=== PATIENT | female | born 1960 | race Caucasian/White ===

== ENCOUNTER 2017-02-16 07:50 | Emergency (ER) | payer MEDICARE, OTHER ==
[2017-02-16 08:23] LABS: BASOPHIL 0.4 % (0-2); EOSINOPHIL 3.8 % (0-5); HCT 40.7 % (37.0-47.0); HGB 13.6 g/dl (12.5-16.0); LYMPHOCYTE 22.5 % (15-48); MCH 31.9 pg (25.0-31.0); MCHC 33.4 g/dL (32.0-36.0); MCV 95.5 fL (78.0-100.0); MONOCYTE 6.8 % (0-12); NEUTROPHIL 66.5 % (41-80); PLT 265 K/uL (150-400); RBC 4.26 M/uL (4.20-5.40); RDW 13.4 % (11.5-14.0); WBC 8.1 K/uL (4.0-10.5)
[2017-02-16 08:55] LABS: ALBUMIN 4.2 g/dL (3.5-5.0); BILIRUBIN - TOTAL 0.2 mg/dL (0.1-1.0); CREATININE 0.9 mg/dL (0.5-1.0); GLOBULIN (CALCULATION) 3.1 g/dL (2.2-4.2); POTASSIUM 4.8 mmol/L (3.5-5.1); TOTAL PROTEIN 7.3 g/dL (6.4-8.3)
== END 2017-02-16 09:39 | disposition home or self-care (01) ==
LOC: FER 07:50
PROVIDERS: Internal Medicine
DX: J44.9 Chronic obstructive pulmonary disease, unspecified (principal); S29.012A Strain of muscle and tendon of back wall of thorax, initial encounter; J45.909 Unspecified asthma, uncomplicated; E78.5 Hyperlipidemia, unspecified; K21.9 Gastro-esophageal reflux disease without esophagitis; F41.9 Anxiety disorder, unspecified; F17.200 Nicotine dependence, unspecified, uncomplicated; Z79.899 Other long term (current) drug therapy; Z98.61 Coronary angioplasty status
CPT/HCPCS: 36415; 71010; 80053; 83690; 84484; 85025; 93005; 94640; J1885; J2405; J2930

== ENCOUNTER 2020-12-25 17:46 | Inpatient (IN) | payer MEDICARE, OTHER ==
[~2020-12-25 17:46] MED LIST: ASPIRIN81 MG PO; ATARAX25 MG PO; ATORVASTATIN CA80 MG PO; AZITHROMYCIN250 MG PO; BASAGLAR K100 UNIT/1 SC; BENTYL10 MG PO; BUMETANIDE2 MG PO; CARAFATE1 GM PO; DIFLUCAN150 MG PO; DIMENHYDRINATE50 MG PO; DULERA 200 MCG8.8 GM INH; DUONEB 2.5-0.5M1 AMP INH; DUONEB 2.5-0.5M1 AMP NEB; FENOFIBRATE160 MG PO; FLUCONAZOLE150 MG PO; GABAPENTIN300 MG PO; HUMALOG100 UNIT/3 SC; HYDROCODON-ACE1 EAC6 PO; ISOSORBIDE MONO60 MG PO; K-DUR20 MEQ PO; LISINOPRIL 2.52.5 MG PO; LOPRESSOR25 MG PO; MACROBID100 MG PO; MEDROL 4MG DOSEP4 MG PO; MELATONIN5 MG PO; NEURONTIN300 MG PO; NIACIN ER500 MG PO; NOVOLOG VI100 UNIT/1 SC; NYSTATIN15 GM TOP; OXYCODONE-ACET1 EAC1 PO; PANTOPRAZOLE SO40 MG PO; PERCOCET 5-3251 EACH PO; PLAVIX75 MG PO; PREDNISONE 20MG20 MG PO; PREDNISONE20 MG PO; PREDNISONE5 MG PO; PRILOSEC20 MG PO; PROTONIX 40MG T40 MG PO; TESSALON PERLE100 MG PO; TOPAMAX25 MG PO; TOPIRAMATE25 MG PO; TOPROL XL 25MG25 MG PO; ZANTAC150 MG PO; ZESTRIL2.5 MG PO; ZOFRAN4 MG PO; ZPAK PO
[2020-12-25 19:08] LABS: BILIRUBIN - TOTAL 0.5 mg/dL (0.2-1.0); BUN/CREAT RATIO (CALC) 17.4 RATIO; CREATININE 1.9 mg/dL (0.51-0.95); GLOBULIN (CALCULATION) 4.1 g/dL; POTASSIUM 4.5 mmol/L (3.5-5.1); TOTAL PROTEIN 8.1 g/dL (6.4-8.2)
[2020-12-25 19:12] LABS: BASOPHIL 0.4 % (0-2); EOSINOPHIL 0.6 % (0-5); HCT 44.6 % (37.0-47.0); HGB 14.6 g/dl (12.5-16.0); LACTIC ACID 1.5 mmol/L (0.4-1.9); LYMPHOCYTE 11.7 % (15-48); MCH 31.8 pg (25.0-31.0); MCHC 32.7 g/dL (32.0-36.0); MCV 97.2 fL (78.0-100.0); MONOCYTE 6.7 % (0-12); MPV 9.8 fL (6.0-9.5); NEUTROPHIL 79.8 % (41-80); NRBC 0; PLT 350 K/uL (150-400); RBC 4.59 M/uL (4.20-5.40); RDW 12.7 % (11.5-14.0); WBC 21.1 K/uL (4.0-10.5)
[2020-12-25 19:15] LABS: INR 1.11 (0.9-1.2); PROTHROMBIN TIME 13.6 SECONDS (11.4-13.6); PTT 24.4 SECONDS (22.2-34.7)
[2020-12-25 19:31] LABS: CKMB 1.5 ng/mL (0.0-3.6); PRO-BNP 116 pg/mL (<125)
[2020-12-25 21:31] LABS: CORONAVIRUS 2019 SARS-COV-2 NEGATIVE (NEGATIVE); INFLUENZA A NAA NEGATIVE (NEGATIVE)
[2020-12-25 21:32] LABS: BILIRUBIN 1+ mg/dL (NEGATIVE); BLOOD TRACE-INTACT Ery/uL (NEGATIVE); CLARITY CLOUDY (CLEAR); COLOR YELLOW (YELLOW); GLUCOSE (U) NORMAL (NORMAL); LEUKOCYTES 1+ Leu/uL (NEGATIVE); NITRITE NEGATIVE (NEGATIVE); PROTEIN 3+ mg/dL (NEGATIVE); SPECIFIC GRAVITY >=1.030 (1.001-1.030); UROBILINOGEN 0.2 mg/dL (0.2-1.0)
[2020-12-25 21:40] LABS: BACTERIA 3+; SQUAMOUS EPITHELIAL CELLS >50; URINARY WBC TNTC
[2020-12-25] MEDS ORDERED: NORCO 5-325 TA1 EACH PO (23:04)
[2020-12-25] MEDS ORDERED: LIPITOR80 MG PO (23:09)
[2020-12-25] MEDS ORDERED: CLARITIN10 MG PO (23:12)
[2020-12-25] MEDS ORDERED: TRESIBA100 UNIT/1 SC (23:15)
[2020-12-26 05:52] LABS: BASOPHIL 0.4 % (0-2); EOSINOPHIL 1.2 % (0-5); HCT 35.2 % (37.0-47.0); HGB 11.3 g/dl (12.5-16.0); LYMPHOCYTE 20.5 % (15-48); MCH 31.7 pg (25.0-31.0); MCHC 32.1 g/dL (32.0-36.0); MCV 98.9 fL (78.0-100.0); MONOCYTE 7.3 % (0-12); MPV 9.8 fL (6.0-9.5); NEUTROPHIL 70.1 % (41-80); NRBC 0; PLT 242 K/uL (150-400); RBC 3.56 M/uL (4.20-5.40); RDW 12.9 % (11.5-14.0); WBC 10.9 K/uL (4.0-10.5)
[2020-12-26 06:10] LABS: BUN/CREAT RATIO (CALC) 21.1 RATIO; CREATININE 1.75 mg/dL (0.51-0.95); POTASSIUM 3.5 mmol/L (3.5-5.1)
--- NOTE | 2020-12-26 11:38 | NUR ---
1020- CDIFF RESULT NEGATIVE, NOTIFIED. DOOR SIGN REMOVED. 1000- PT C/O PAIN AND AASKED FOR PAIN PILL. NORCO 5 WAS GIVEN AT 1100.
--- NOTE | 2020-12-26 13:00 | NUR ---
PT BP ON ROUNDS WAS 90/53 MAP 55 HR 72 AND RN WAS NOTIFIED BY MANAGER OF ORGANIZATIONAL DEVELOPMENT. RN WENT TO RECHECK BP AND IT WAS THE SAME. PT WAS SYMPTAMATIC IN LETHARGIC AND TIRED. MD WAS NOTIFIED AT 1439 AND WAS TOLD TO MONITOR PT BP. A RECHECK WAS DONE 15 MIN LATER AND WAS 71/48. MD WAS NOTIFIED BY PHONE AGAIN AND AN ORDER FOR 500ML NS BOLUS WAS GIVEN. PT WAS GIVEN BOLUS AND CONT TO MONITOR. RECHECK OF BP AT 1500 WAS 90/66. MD IS AWARE.
--- NOTE | 2020-12-26 16:32 | NUR ---
12/26/20 Ms. Marroquin is asingle 60 y/o woman admitted due to syncope. She lives alone and was independent in the home and community prior to admission. Ms. Salazar has home 02. Her daughter is supportive. - No discharge planning needs are anticipated.
[2020-12-27 03:43] LABS: HCT 31.8 % (37.0-47.0); HGB 10.5 g/dl (12.5-16.0); MCH 32.3 pg (25.0-31.0); MCV 97.8 fL (78.0-100.0); MPV 9.7 fL (6.0-9.5); RBC 3.25 M/uL (4.20-5.40); RDW 12.9 % (11.5-14.0); WBC 7.6 K/uL (4.0-10.5)
[2020-12-27 04:00] LABS: BUN/CREAT RATIO (CALC) 21.4 RATIO; CREATININE 1.31 mg/dL (0.51-0.95); POTASSIUM 3.8 mmol/L (3.5-5.1)
--- NOTE | 2020-12-27 04:22 | NUR ---
patient c/o chest pain at 033 SECURITY ALARM TECHNICIAN NOTIFIED, EKG OBTAINED, LABS DRAWN, NITRO GIVEN X1 AT 0340 NO RELIEF. BP 100/64. 2MG MORPHINE GIVEN WITH NO RELIEF ADDITIONAL DOSE OF MORPHINE GIVEN WITH EFFECTIVE RESULTS.
--- NOTE | 2020-12-27 14:35 | NUR ---
1350- PT ASKED TO AMBULATE TO [facility] FROM [facility]AIR AND THEN C/O HEAVY CHEST PRESSURE MIDSTERNAL THAT RADIATES TO LEFT SHOULDER. PT STATED " IT FEELS LIKE AN ELEPHANT ON MY CHEST." NOTIFIED AND ORDERED A STAT EKG AND TROPONIN. BOTH WERE COMPLETED AT 1401. LOOKED AT EKG AND CONSULTED WITH AD. A NITRO PATCH IS PENDING ORDER. TROPONIN IS ALSO STILL PENDING VIA LAB. PT IS BACK IN BED AND STATES SHE IS UNCOMFORTABLE BUT NOT IN ANY PAIN. WILL COMPLETE ORDERS THEY ARE ACKNOWLEDGED.
[2020-12-29 04:01] LABS: HCT 28.8 % (37.0-47.0); HGB 9.5 g/dl (12.5-16.0); MCH 32.1 pg (25.0-31.0); MCV 97.3 fL (78.0-100.0); MPV 9.7 fL (6.0-9.5); RBC 2.96 M/uL (4.20-5.40); RDW 12.7 % (11.5-14.0); WBC 6.2 K/uL (4.0-10.5)
[2020-12-29 04:13] LABS: BUN/CREAT RATIO (CALC) 16.1 RATIO; CREATININE 0.87 mg/dL (0.51-0.95); POTASSIUM 3.6 mmol/L (3.5-5.1)
[2020-12-29] MEDS ORDERED: CEFDINIR300 MG PO (10:06)
[2020-12-29] MEDS ORDERED: BUMETANIDE2 MG PO (10:09)
--- NOTE | 2020-12-29 13:32 | NUR ---
PATIENT STATED SHE GOING TO TAKE HER MEDICATIONS AFTER SHE LEFT. DAUGHTER CAME TO PICK HER UP. SEE DISCHARGE NOTE.
== END 2020-12-29 12:30 | disposition home health service (06) | DRG 872 ==
LOC: FER 17:46 → FTCU 21:17
PROVIDERS: Emergency Medicine; Emergency Medicine Emergency Medical Services; Hospitalist; Nurse Practitioner; ADMIT Internal Medicine
DX: A41.9 Sepsis, unspecified organism (principal); N39.0 Urinary tract infection, site not specified; N17.9 Acute kidney failure, unspecified; N18.30 Chronic kidney disease, stage 3 unspecified; E11.22 Type 2 diabetes mellitus with diabetic chronic kidney disease; Z20.822 Contact with and (suspected) exposure to COVID-19; I25.10 Atherosclerotic heart disease of native coronary artery without angina pectoris; I45.10 Unspecified right bundle-branch block; I12.9 Hypertensive chronic kidney disease with stage 1 through stage 4 chronic kidney disease, or unspecified chronic kidney disease; E78.5 Hyperlipidemia, unspecified; E86.0 Dehydration; J44.9 Chronic obstructive pulmonary disease, unspecified; E11.42 Type 2 diabetes mellitus with diabetic polyneuropathy; I95.9 Hypotension, unspecified; F41.1 Generalized anxiety disorder; G25.81 Restless legs syndrome; Z95.5 Presence of coronary angioplasty implant and graft; Z87.891 Personal history of nicotine dependence; Z98.890 Other specified postprocedural states; Z90.49 Acquired absence of other specified parts of digestive tract; Z99.81 Dependence on supplemental oxygen; Z88.5 Allergy status to narcotic agent; Z88.8 Allergy status to other drugs, medicaments and biological substances; Z88.6 Allergy status to analgesic agent; Z88.1 Allergy status to other antibiotic agents; Z91.012 Allergy to eggs; Z79.82 Long term (current) use of aspirin; Z79.02 Long term (current) use of antithrombotics/antiplatelets; Z79.899 Other long term (current) drug therapy
CPT/HCPCS: 36415; 70450; 71045; 76705; 80048; 80053; 81001; 82553; 82962; 83605; 83690; 83735; 83880; 84484; 85025; 85610; 85730; 87040; 87088; 87324; 87449; 87493; 93005; 94640; 94664; 97161; 97165; 97530-GP; 97535; C9113; J0696; J1644; J2270; J2405; J2543; J7030; J7040; U0002

== ENCOUNTER 2021-01-27 15:02 | Day surgery (SDCO) | payer MEDICARE, OTHER ==
[~2021-01-27] VITALS: Ht 152.4 cm; Wt 89.4 kg
[~2021-01-27 15:02] MED LIST changes: +CEFDINIR300 MG PO; +CLARITIN10 MG PO; +LIPITOR80 MG PO; +NORCO 5-325 TA1 EACH PO; +TRESIBA100 UNIT/1 SC
[2021-01-27 16:35] LABS: BASOPHIL 0.7 % (0-2); EOSINOPHIL 2.1 % (0-5); HCT 40.7 % (37.0-47.0); HGB 13.5 g/dl (12.5-16.0); LYMPHOCYTE 24.7 % (15-48); MCH 31.7 pg (25.0-31.0); MCHC 33.2 g/dL (32.0-36.0); MCV 95.5 fL (78.0-100.0); MONOCYTE 5.7 % (0-12); MPV 9.5 fL (6.0-9.5); NEUTROPHIL 66.2 % (41-80); NRBC 0; PLT 266 K/uL (150-400); RBC 4.26 M/uL (4.20-5.40); WBC 13.4 K/uL (4.0-10.5)
[2021-01-27 16:43] LABS: INR 1.09 (0.9-1.2); PROTHROMBIN TIME 13.4 SECONDS (11.4-13.6)
[2021-01-27 16:50] LABS: ALBUMIN 3.4 g/dL (3.4-5.0); BILIRUBIN - TOTAL 0.3 mg/dL (0.2-1.0); BUN/CREAT RATIO (CALC) 22.9 RATIO; CREATININE 1.05 mg/dL (0.51-0.95); GLOBULIN (CALCULATION) 4.2 g/dL; TOTAL PROTEIN 7.6 g/dL (6.4-8.2)
[2021-01-27 16:56] LABS: LACTIC ACID 1.4 mmol/L (0.4-1.9)
[2021-01-27 16:59] LABS: PRO-BNP 31 pg/mL (<125)
[2021-01-27 17:55] LABS: BILIRUBIN NEGATIVE (NEGATIVE); BLOOD NEGATIVE Ery/uL (NEGATIVE); CLARITY CLEAR (CLEAR); COLOR YELLOW (YELLOW); GLUCOSE (U) NORMAL (NORMAL); LEUKOCYTES NEGATIVE Leu/uL (NEGATIVE); NITRITE NEGATIVE (NEGATIVE); PROTEIN NEGATIVE (NEGATIVE); SPECIFIC GRAVITY 1.015 (1.001-1.030); UROBILINOGEN 0.2 mg/dL (0.2-1.0); pH 7.5 (5.0-9.0)
[2021-01-27] MEDS ORDERED: PREDNISONE 10MG10 MG PO (20:30)
[2021-01-27] MEDS ORDERED: AZITHROMYCIN250 MG PO (20:30)
[2021-01-28] MEDS ORDERED: LEVEMIR100 UNIT/1 SC (05:23)
[2021-01-28] MEDS ORDERED: BUMEX1 MG PO (05:24)
[2021-01-28 06:08] LABS: BASOPHIL 0.7 % (0-2); HCT 35.5 % (37.0-47.0); HGB 11.5 g/dl (12.5-16.0); LYMPHOCYTE 27.9 % (15-48); MCH 31.6 pg (25.0-31.0); MCHC 32.4 g/dL (32.0-36.0); MCV 97.5 fL (78.0-100.0); MONOCYTE 5.9 % (0-12); MPV 9.3 fL (6.0-9.5); NEUTROPHIL 61.9 % (41-80); NRBC 0; PLT 212 K/uL (150-400); RBC 3.64 M/uL (4.20-5.40); WBC 9.8 K/uL (4.0-10.5)
[2021-01-28 06:31] LABS: ALBUMIN 2.9 g/dL (3.4-5.0); BILIRUBIN - TOTAL 0.2 mg/dL (0.2-1.0); BUN/CREAT RATIO (CALC) 21.8 RATIO; CREATININE 1.1 mg/dL (0.51-0.95); GLOBULIN (CALCULATION) 3.2 g/dL; MAGNESIUM 1.8 mg/dL (1.8-2.4); PHOSPHORUS 3.9 mg/dL (2.6-4.7); POTASSIUM 4.1 mmol/L (3.5-5.1); TOTAL PROTEIN 6.1 g/dL (6.4-8.2)
[2021-01-28 06:36] LABS: PRO-BNP 28 pg/mL (<125)
[2021-01-29 06:11] LABS: BUN/CREAT RATIO (CALC) 20.4 RATIO; CREATININE 0.93 mg/dL (0.51-0.95); POTASSIUM 4.7 mmol/L (3.5-5.1)
[2021-01-29] MEDS ORDERED: ISOSORBIDE MONO30 MG PO (10:29)
--- NOTE | 2021-01-29 10:37 | NUR ---
MET WITH PT. SHE STATED THAT SHE HAS A RW, CANE, WC. SHE DOES NOT HAVE HH. SHE HAS ONE DAUGHTER AND SON IN [place]. THEY LIVE NEARBY AND ARE SUPPORTIVE AND HELPFUL. PT. IS TO SEE DR. SMITH IN 2-3 WEEKS. SHE HAS A STENT AND HAS STARTED A NEW HEART MEDICATION. SHE FELT THAT MAY HAVE CAUSED SOME OF THE ISSUES. PT. WILL D/C HOME THIS DATE.
--- NOTE | 2021-01-29 13:20 | NUR ---
MET WITH PT. PHYSICAL THERAPY IS RECOMMENDING OUTPT. THERAPY, BUT PT DOES NOT FEEL COMPFORTABLE AT THIS TIME TO GO OUTPT. THE AIR CONDITIONING IS NOT WORKING ON HER CARE AND SHE DOESN'T FEEL COMFORTABLE GOING TO THERAPY WITH OUT THE AIR. SHE IS REQUESTING KORT TO HOME. FIRST MESHA. IS 02/06/21. THE THERAPIST WILL CALL THE PT THE NIGHT BEFORE TO SIT UP THE APPT TIME FOR 02/06/21. PT. WAS GIVEN THIS INFORMATION ON THE CHOICE FORM. PT. SIGNED THE CHOICE FORM. AND COPY WAS GIVEN. ADVISED DR. HERRERA OF THIS INFORMATION. DR. HERRERA UNDERSTOOD PT. CIRCUMSTANCES.
== END 2021-01-29 13:58 | disposition home or self-care (01) ==
LOC: FER 15:02 → FMS 01-28 04:09
PROVIDERS: Emergency Medicine; Nurse Practitioner; ADMIT Allergy & Immunology Allergy
DX: I95.1 Orthostatic hypotension (principal); E86.0 Dehydration; J44.9 Chronic obstructive pulmonary disease, unspecified; E11.42 Type 2 diabetes mellitus with diabetic polyneuropathy; I25.10 Atherosclerotic heart disease of native coronary artery without angina pectoris; E78.5 Hyperlipidemia, unspecified; G25.81 Restless legs syndrome; F41.1 Generalized anxiety disorder; Z95.5 Presence of coronary angioplasty implant and graft; Z99.81 Dependence on supplemental oxygen; Z87.891 Personal history of nicotine dependence; Z88.5 Allergy status to narcotic agent; Z88.1 Allergy status to other antibiotic agents; Z91.012 Allergy to eggs; Z91.011 Allergy to milk products; Z88.8 Allergy status to other drugs, medicaments and biological substances; Z79.82 Long term (current) use of aspirin; Z79.02 Long term (current) use of antithrombotics/antiplatelets; Z79.891 Long term (current) use of opiate analgesic; Z79.4 Long term (current) use of insulin; Z79.899 Other long term (current) drug therapy; Z20.822 Contact with and (suspected) exposure to COVID-19
CPT/HCPCS: 36415; 71045; 71275; 80048; 80053; 81003; 82962; 83605; 83735; 83880; 84100; 84484; 85025; 85379; 85610; 87040; 93005; 94010; 94640; 97162; 97166; 97530-GP; 97535; G0378; J0696; J1650; J2270; J2405; J7030; Q9967; U0002

== ENCOUNTER 2021-06-18 07:11 | Inpatient (IN) | payer MEDICARE, OTHER ==
[~2021-06-18 07:11] MED LIST changes: +BUMEX1 MG PO; +ISOSORBIDE MONO30 MG PO; +LEVEMIR100 UNIT/1 SC; +PREDNISONE 10MG10 MG PO
[2021-06-18 07:37] LABS: BASOPHIL 0.3 % (0-2); EOSINOPHIL 0.9 % (0-5); HCT 39.4 % (37.0-47.0); HGB 12.5 g/dl (12.5-16.0); LYMPHOCYTE 22.2 % (15-48); MCH 31.5 pg (25.0-31.0); MCHC 31.7 g/dL (32.0-36.0); MCV 99.2 fL (78.0-100.0); MONOCYTE 6.2 % (0-12); MPV 9.7 fL (6.0-9.5); NEUTROPHIL 69.7 % (41-80); NRBC 0; PLT 180 K/uL (150-400); RBC 3.97 M/uL (4.20-5.40); RDW 13.7 % (11.5-14.0); WBC 8.8 K/uL (4.0-10.5)
[2021-06-18 07:48] LABS: INR 0.97 (0.9-1.2); PROTHROMBIN TIME 12.3 SECONDS (11.8-13.4); PTT 22.9 SECONDS (24.4-34.7)
[2021-06-18 07:50] LABS: D-DIMER 0.74 ug/mLFEU (0.00-0.41)
[2021-06-18 07:57] LABS: ALBUMIN 3.2 g/dL (3.4-5.0); BILIRUBIN - TOTAL 0.2 mg/dL (0.2-1.0); BUN/CREAT RATIO (CALC) 24.2 RATIO; CREATININE 0.95 mg/dL (0.51-0.95); GLOBULIN (CALCULATION) 3.2 g/dL; POTASSIUM 3.8 mmol/L (3.5-5.1); TOTAL PROTEIN 6.4 g/dL (6.4-8.2)
[2021-06-18 08:03] LABS: PRO-BNP 189 pg/mL (<125)
[2021-06-18 08:12] LABS: INFLUENZA A NAA NEGATIVE (NEGATIVE)
[2021-06-18 08:23] LABS: CORONAVIRUS 2019 SARS-COV-2 POSITIVE (NEGATIVE)
--- NOTE | 2021-06-18 12:40 | NUR ---
ENTERED ROOM TO GIVE PATIENT KLEENEX'S THAT SHE HAD ASKED FOR AND SHE STARTED SWINGING HER IV LINE AROUND FROM THE FLOOR, I ASKED HER TO PLEASE BE CAREFUL OF THE LINE SHE ALMOST HIT ME IN THE FACE WITH IT BECAUSE I WAS HANDING HER THE KLEENEX SHE STARTED SWINGING. PATIENT YELLED THAT SHE WAS JUST GOING TO PUT HER CLOTHES ON AND GO HOME THAT WE HADN'T DONE ANYTHING FOR HER ANYWAY. SHE CALLED HER FAMILY AND SHE WAS INSISTENT TO LEAVE AND HAS O2 AT HOME AT A HIGHER RATE THAN WE WERE USING FOR HER HERE, I D/C HER IV AND INFORMED DR MARTINEZ
[2021-06-19] MEDS ORDERED: NEURONTIN300 MG PO ×2 (17:57→17:58)
== END 2021-06-18 12:43 | disposition left against medical advice (07) | DRG 177 ==
LOC: FER 07:11 → FMS 10:22
PROVIDERS: Emergency Medicine; ADMIT Family Medicine
PROC: 8E0ZXY6 Isolation (ICD-10-PCS; principal; 2021-06-18)
PROC: XW033G6 Introduction of REGN-COV2 Monoclonal Antibody into Peripheral Vein, Percutaneous Approach, New Technology Group 6 (ICD-10-PCS; 2021-06-18)
DX: U07.1 COVID-19 (principal); J12.82 Pneumonia due to coronavirus disease 2019; J44.1 Chronic obstructive pulmonary disease with (acute) exacerbation; J44.0 Chronic obstructive pulmonary disease with (acute) lower respiratory infection; E87.0 Hyperosmolality and hypernatremia; Z23 Encounter for immunization; I25.10 Atherosclerotic heart disease of native coronary artery without angina pectoris; E11.42 Type 2 diabetes mellitus with diabetic polyneuropathy; I10 Essential (primary) hypertension; E78.5 Hyperlipidemia, unspecified; Z90.89 Acquired absence of other organs; Z88.2 Allergy status to sulfonamides; Z88.5 Allergy status to narcotic agent; Z99.81 Dependence on supplemental oxygen
CPT/HCPCS: 36415; 36600; 71045; 71275; 80053; 82803; 83605; 83880; 84484; 85025; 85379; 85610; 85730; 87040; 93005; 94640; 94664; J2930; Q0244; Q9967; U0002

== ENCOUNTER 2021-06-19 09:41 | Inpatient (IN) | payer MEDICARE, OTHER ==
[~2021-06-19] VITALS: Ht 152.4 cm; Wt 87.3 kg
[2021-06-19 10:13] LABS: BASOPHIL 0.2 % (0-2); EOSINOPHIL 0 % (0-5); HCT 38.7 % (37.0-47.0); HGB 12.9 g/dl (12.5-16.0); LYMPHOCYTE 13.7 % (15-48); MCH 31.8 pg (25.0-31.0); MCHC 33.3 g/dL (32.0-36.0); MCV 95.3 fL (78.0-100.0); MONOCYTE 6.2 % (0-12); MPV 9.7 fL (6.0-9.5); NEUTROPHIL 78.9 % (41-80); NRBC 0; PLT 192 K/uL (150-400); RBC 4.06 M/uL (4.20-5.40); RDW 13.3 % (11.5-14.0); WBC 10.3 K/uL (4.0-10.5)
[2021-06-19 10:24] LABS: ALBUMIN 3.2 g/dL (3.4-5.0); BILIRUBIN - TOTAL 0.5 mg/dL (0.2-1.0); BUN/CREAT RATIO (CALC) 32.1 RATIO; CREATININE 0.78 mg/dL (0.51-0.95); POTASSIUM 3.5 mmol/L (3.5-5.1); TOTAL PROTEIN 7.2 g/dL (6.4-8.2)
[2021-06-19] MEDS ORDERED: NEURONTIN300 MG PO ×2 (17:57→17:58)
[2021-06-20 06:05] LABS: BASOPHIL 0.2 % (0-2); EOSINOPHIL 0 % (0-5); HCT 32.6 % (37.0-47.0); HGB 10.7 g/dl (12.5-16.0); LYMPHOCYTE 24.8 % (15-48); MCH 31.8 pg (25.0-31.0); MCHC 32.8 g/dL (32.0-36.0); MONOCYTE 5.6 % (0-12); NEUTROPHIL 68.1 % (41-80); NRBC 0; PLT 162 K/uL (150-400); RBC 3.36 M/uL (4.20-5.40); RDW 13.3 % (11.5-14.0)
[2021-06-20 06:08] LABS: WBC 5.4 K/uL (4.0-10.5)
[2021-06-20 06:30] LABS: BUN/CREAT RATIO (CALC) 40.5 RATIO; CREATININE 0.79 mg/dL (0.51-0.95); MAGNESIUM 1.9 mg/dL (1.8-2.4); POTASSIUM 3.7 mmol/L (3.5-5.1)
--- NOTE | 2021-06-20 14:59 | NUR ---
06/20/21 Ms. Marroquin lives alone. She has a daughter and son-in-law near by. She has home 02 at 3.5.L, rw, wc, cane, portable 02, and nebulizer. Ms. Marroquin has used [facility] in the past. She would like [facility] as her first choice and [facility] as 2nd choice if HH is needed at discharge.
--- NOTE | 2021-06-21 05:33 | NUR ---
TELEMETRY: TELE KEEPS READING CANNOT ANALYZE ECG. DESPITE SWITCHING OUT ALL EQUIPMENT & ENSURING ALL IN PLACE, TELE CONTS TO READ POORLY. WILL CONT TO WORK WITH EQUIPMENT & REPORT ISSUE TO ONCOMING SHIFT.
[2021-06-22 06:10] LABS: BASOPHIL 0.1 % (0-2); EOSINOPHIL 0.1 % (0-5); HCT 33.6 % (37.0-47.0); LYMPHOCYTE 19.7 % (15-48); MCH 31.2 pg (25.0-31.0); MCHC 32.7 g/dL (32.0-36.0); MCV 95.2 fL (78.0-100.0); MONOCYTE 7.5 % (0-12); MPV 9.6 fL (6.0-9.5); NEUTROPHIL 71.4 % (41-80); NRBC 0; PLT 181 K/uL (150-400); RBC 3.53 M/uL (4.20-5.40); WBC 8.9 K/uL (4.0-10.5)
[2021-06-22 06:25] LABS: BUN/CREAT RATIO (CALC) 33.3 RATIO; CREATININE 0.75 mg/dL (0.51-0.95); MAGNESIUM 1.7 mg/dL (1.8-2.4); POTASSIUM 3.5 mmol/L (3.5-5.1)
[2021-06-23] MEDS ORDERED: MEDROL 4MG DOSEP4 MG PO (14:06)
--- NOTE | 2021-06-23 15:39 | NUR ---
PT INSTRUCTED AT DISCHARGE THAT DAUGHTER WOULD NEED TO BRING HOME O2 TANK TO TAKE HER HOME, PT REFUSED, SAY SHE DID NOT LIVE FAR, PT ENCOURAGED MULTIPLE TIMES TO GET HOME O2 TANK PRIOR TO LEAVING, PT CONTINUED TO REFUSE, PT INSTRUCTED WHEN HER RIDE GETS HERE TO CALL OUT AND WE WOULD ACCOMPANY DOWN IN A WHEELECHAIR, PT CAME UP TO NURSES STATION AND PROCEEDED TO GET ON ELEVATOR, WHEN WHEELECHAIR OFFERED PT REFUSED CONTINUED DOWN THE ELEVATOR
== END 2021-06-23 15:36 | disposition home or self-care (01) | DRG 177 ==
LOC: FER 09:41 → FMS 11:11
PROVIDERS: Internal Medicine; ADMIT Internal Medicine
PROC: 8E0ZXY6 Isolation (ICD-10-PCS; principal; 2021-06-19)
PROC: XW033E5 Introduction of Remdesivir Anti-infective into Peripheral Vein, Percutaneous Approach, New Technology Group 5 (ICD-10-PCS; 2021-06-19)
PROC: XW0DXM6 Introduction of Baricitinib into Mouth and Pharynx, External Approach, New Technology Group 6 (ICD-10-PCS; 2021-06-19)
DX: U07.1 COVID-19 (principal); J12.82 Pneumonia due to coronavirus disease 2019; J96.21 Acute and chronic respiratory failure with hypoxia; J15.9 Unspecified bacterial pneumonia; J44.1 Chronic obstructive pulmonary disease with (acute) exacerbation; J44.0 Chronic obstructive pulmonary disease with (acute) lower respiratory infection; E11.40 Type 2 diabetes mellitus with diabetic neuropathy, unspecified; I25.10 Atherosclerotic heart disease of native coronary artery without angina pectoris; E78.5 Hyperlipidemia, unspecified; I11.0 Hypertensive heart disease with heart failure; I50.9 Heart failure, unspecified; E11.42 Type 2 diabetes mellitus with diabetic polyneuropathy; F41.1 Generalized anxiety disorder; G25.81 Restless legs syndrome; G47.33 Obstructive sleep apnea (adult) (pediatric); Z90.49 Acquired absence of other specified parts of digestive tract; Z90.89 Acquired absence of other organs; Z95.5 Presence of coronary angioplasty implant and graft; Z99.81 Dependence on supplemental oxygen; Z88.8 Allergy status to other drugs, medicaments and biological substances; Z88.2 Allergy status to sulfonamides; Z91.012 Allergy to eggs; Z91.018 Allergy to other foods; Z91.011 Allergy to milk products; Z79.82 Long term (current) use of aspirin; Z79.02 Long term (current) use of antithrombotics/antiplatelets; Z79.4 Long term (current) use of insulin; Z79.899 Other long term (current) drug therapy
CPT/HCPCS: 36415; 36600; 71045; 80048; 80053; 82803; 82962; 83605; 83735; 84145; 84484; 85025; 93005; 94010; 94640; 94664; C9399; G0378; J0456; J0696; J1100; J1650; J1815; J2405; J3475; J7030; J7050; J8540

== ENCOUNTER 2021-08-08 07:53 | Emergency (ER) | payer MEDICARE, OTHER ==
[2021-08-08 09:51] LABS: BASOPHIL 0.6 % (0-2); EOSINOPHIL 2.4 % (0-5); HCT 43.3 % (37.0-47.0); HGB 14.3 g/dl (12.5-16.0); LYMPHOCYTE 21.5 % (15-48); MCH 31.6 pg (25.0-31.0); MCV 95.8 fL (78.0-100.0); MONOCYTE 7.2 % (0-12); MPV 8.9 fL (6.0-9.5); NEUTROPHIL 67.4 % (41-80); NRBC 0; PLT 273 K/uL (150-400); RBC 4.52 M/uL (4.20-5.40); RDW 13.2 % (11.5-14.0); WBC 10.3 K/uL (4.0-10.5)
[2021-08-08 10:26] LABS: BILIRUBIN - TOTAL 0.7 mg/dL (0.2-1.0); BUN/CREAT RATIO (CALC) 15.3 RATIO; CREATININE 0.85 mg/dL (0.51-0.95); GLOBULIN (CALCULATION) 3.7 g/dL; POTASSIUM 3.8 mmol/L (3.5-5.1); TOTAL PROTEIN 7.7 g/dL (6.4-8.2)
[2021-08-08 12:52] LABS: C-REACTIVE PROTEIN 0.4 mg/dL (<=0.90)
[2021-08-08] MEDS ORDERED: BENTYL10 MG PO (15:10)
[2021-08-08] MEDS ORDERED: ONDANSETRON ODT4 MG PO (15:10)
[2021-08-08 15:32] LABS: INR 0.95 (0.9-1.2); PROTHROMBIN TIME 12.1 SECONDS (11.8-13.4)
[2021-08-08 15:33] LABS: PTT 26.4 SECONDS (24.4-34.7)
[2021-08-08 15:36] LABS: D-DIMER 1.06 ug/mLFEU (0.00-0.41)
[2021-08-08 17:31] LABS: BILIRUBIN 2+ mg/dL (NEGATIVE); BLOOD NEGATIVE Ery/uL (NEGATIVE); CLARITY CLEAR (CLEAR); COLOR YELLOW (YELLOW); GLUCOSE (U) NORMAL (NORMAL); LEUKOCYTES NEGATIVE Leu/uL (NEGATIVE); NITRITE NEGATIVE (NEGATIVE); PROTEIN NEGATIVE (NEGATIVE); SPECIFIC GRAVITY >=1.030 (1.001-1.030); UROBILINOGEN 0.2 mg/dL (0.2-1.0); pH 5.5 (5.0-9.0)
== END 2021-08-08 18:18 | disposition home or self-care (01) ==
LOC: FER 07:53
PROVIDERS: Emergency Medicine
DX: K82.8 Other specified diseases of gallbladder (principal); R07.9 Chest pain, unspecified; E11.9 Type 2 diabetes mellitus without complications; Z87.891 Personal history of nicotine dependence; Z91.012 Allergy to eggs
CPT/HCPCS: 36415; 71045; 76705; 80053; 81003; 82728; 83615; 83690; 84145; 84484; 85025; 85379; 85610; 85730; 86140; 87088; 93005; J1170; J2405

== ENCOUNTER 2021-08-09 11:02 | Emergency (ER) | payer MEDICARE, OTHER ==
[~2021-08-09] VITALS: Ht 152.4 cm; Wt 90.7 kg
[~2021-08-09 11:02] MED LIST changes: +ONDANSETRON ODT4 MG PO
[2021-08-09 11:33] LABS: BASOPHIL 0.3 % (0-2); EOSINOPHIL 1.6 % (0-5); HCT 40.7 % (37.0-47.0); HGB 13.6 g/dl (12.5-16.0); LYMPHOCYTE 15.8 % (15-48); MCH 31.9 pg (25.0-31.0); MCHC 33.4 g/dL (32.0-36.0); MCV 95.3 fL (78.0-100.0); MONOCYTE 6.5 % (0-12); MPV 9.2 fL (6.0-9.5); NEUTROPHIL 75.1 % (41-80); NRBC 0; PLT 272 K/uL (150-400); RBC 4.27 M/uL (4.20-5.40); RDW 13.2 % (11.5-14.0)
[2021-08-09 11:51] LABS: INR 1.06 (0.9-1.2); PROTHROMBIN TIME 13.2 SECONDS (11.8-13.4)
[2021-08-09 11:58] LABS: ALBUMIN 3.9 g/dL (3.4-5.0); BILIRUBIN - TOTAL 0.6 mg/dL (0.2-1.0); BUN/CREAT RATIO (CALC) 20.2 RATIO; CREATININE 1.04 mg/dL (0.51-0.95); GLOBULIN (CALCULATION) 3.6 g/dL; POTASSIUM 3.8 mmol/L (3.5-5.1); TOTAL PROTEIN 7.5 g/dL (6.4-8.2)
[2021-08-10 11:01] LABS: BASOPHIL 0.6 % (0-2); EOSINOPHIL 2.8 % (0-5); HCT 32.6 % (37.0-47.0); HGB 10.5 g/dl (12.5-16.0); LYMPHOCYTE 25.8 % (15-48); MCH 31.7 pg (25.0-31.0); MCHC 32.2 g/dL (32.0-36.0); MCV 98.5 fL (78.0-100.0); MONOCYTE 6.3 % (0-12); MPV 9.3 fL (6.0-9.5); NRBC 0; PLT 241 K/uL (150-400); RBC 3.31 M/uL (4.20-5.40); RDW 13.2 % (11.5-14.0); WBC 9.6 K/uL (4.0-10.5)
[2021-08-10 11:12] LABS: PROTHROMBIN TIME 14.6 SECONDS (11.8-13.4)
[2021-08-10 11:19] LABS: ALBUMIN 2.7 g/dL (3.4-5.0); BILIRUBIN - TOTAL 0.3 mg/dL (0.2-1.0); BUN/CREAT RATIO (CALC) 23.9 RATIO; CREATININE 0.71 mg/dL (0.51-0.95); GLOBULIN (CALCULATION) 3.1 g/dL; POTASSIUM 3.8 mmol/L (3.5-5.1); TOTAL PROTEIN 5.8 g/dL (6.4-8.2)
[2021-08-10 11:43] LABS: PTT > 180 SECONDS (24.4-34.7)
== END 2021-08-10 18:50 | disposition other institution (70) ==
LOC: FER 11:02
PROVIDERS: Emergency Medicine
DX: I21.4 Non-ST elevation (NSTEMI) myocardial infarction (principal); J44.9 Chronic obstructive pulmonary disease, unspecified; Z91.012 Allergy to eggs
CPT/HCPCS: 36415; 71045; 80053; 82553; 83690; 84484; 85025; 85610; 85730; 93005; 94640; 94664; J1644; J2270; J2405; J3010; J7030; J7040

== ENCOUNTER 2021-08-17 04:33 | Emergency (ER) | payer MEDICARE, OTHER ==
[2021-08-17 05:15] LABS: BASOPHIL 0.7 % (0-2); EOSINOPHIL 3.9 % (0-5); HCT 35.8 % (37.0-47.0); HGB 11.4 g/dl (12.5-16.0); LYMPHOCYTE 26.2 % (15-48); MCH 31.7 pg (25.0-31.0); MCHC 31.8 g/dL (32.0-36.0); MCV 99.4 fL (78.0-100.0); MONOCYTE 6.4 % (0-12); MPV 9.5 fL (6.0-9.5); NEUTROPHIL 62.2 % (41-80); NRBC 0; PLT 284 K/uL (150-400); RDW 14.1 % (11.5-14.0); WBC 9.7 K/uL (4.0-10.5)
[2021-08-17 05:31] LABS: INR 1.13 (0.9-1.2); PROTHROMBIN TIME 13.9 SECONDS (11.8-13.4)
[2021-08-17 05:38] LABS: ALBUMIN 3.1 g/dL (3.4-5.0); BILIRUBIN - TOTAL 0.2 mg/dL (0.2-1.0); BUN/CREAT RATIO (CALC) 11.9 RATIO; CREATININE 1.09 mg/dL (0.51-0.95); GLOBULIN (CALCULATION) 3.6 g/dL; POTASSIUM 3.6 mmol/L (3.5-5.1); TOTAL PROTEIN 6.7 g/dL (6.4-8.2)
[2021-08-17 05:49] LABS: LACTIC ACID 0.9 mmol/L (0.4-1.9)
== END 2021-08-17 11:00 | disposition home or self-care (01) ==
LOC: FER 04:33
PROVIDERS: Emergency Medicine Emergency Medical Services
DX: R07.89 Other chest pain (principal); R60.1 Generalized edema; I25.2 Old myocardial infarction; E11.9 Type 2 diabetes mellitus without complications; I10 Essential (primary) hypertension; J45.909 Unspecified asthma, uncomplicated; Z88.8 Allergy status to other drugs, medicaments and biological substances; Z91.012 Allergy to eggs; Z79.4 Long term (current) use of insulin; Z79.82 Long term (current) use of aspirin; Z79.899 Other long term (current) drug therapy
CPT/HCPCS: 36415; 71045; 80053; 82947; 83605; 83880; 84145; 84484; 85025; 85379; 85610; 85730; 93005; 94640; 94664; 94760; J2405; J3010

== ENCOUNTER 2022-01-09 21:41 | Emergency (ER) | payer MEDICARE, OTHER ==
[~2022-01-09 21:41] MED LIST changes: +CLONAZEPAM0.5 MG PO; +FLORANEX TABLE1 EACH PO; +HUMALOG 75100 UNIT/M SC; +LANTUS **100 UNITS/ SC; +PRASUGREL HCL10 MG PO; +TRELEGY ELLIPT1 EAC1 INH
== END 2022-01-10 01:05 | disposition home or self-care (01) ==
LOC: FER 21:41
DX: S01.01XA Laceration without foreign body of scalp, initial encounter (principal); J44.9 Chronic obstructive pulmonary disease, unspecified; E11.9 Type 2 diabetes mellitus without complications; Z28.310 Unvaccinated for COVID-19; Z88.1 Allergy status to other antibiotic agents; Z79.84 Long term (current) use of oral hypoglycemic drugs; Z88.6 Allergy status to analgesic agent; W51.XXXA Accidental striking against or bumped into by another person, initial encounter; Y92.009 Unspecified place in unspecified non-institutional (private) residence as the place of occurrence of the external cause
CPT/HCPCS: 70450

== ENCOUNTER 2022-03-07 01:04 | Day surgery (SDCO) | payer MEDICARE, OTHER ==
[~2022-03-07] VITALS: Ht 152.4 cm; Wt 88.5 kg
[2022-03-07 02:42] LABS: BASOPHIL 0.6 % (0-2); EOSINOPHIL 1.5 % (0-5); HCT 42.1 % (37.0-47.0); HGB 13.6 g/dl (12.5-16.0); LYMPHOCYTE 9.5 % (15-48); MCH 29.9 pg (25.0-31.0); MCHC 32.3 g/dL (32.0-36.0); MCV 92.5 fL (78.0-100.0); MONOCYTE 6.7 % (0-12); MPV 9.6 fL (6.0-9.5); NEUTROPHIL 81.2 % (41-80); NRBC 0; PLT 265 K/uL (150-400); RBC 4.55 M/uL (4.20-5.40); RDW 13.4 % (11.5-14.0); WBC 15.2 K/uL (4.0-10.5)
[2022-03-07 02:55] LABS: INR 1.08 (0.9-1.2); PROTHROMBIN TIME 13.7 SECONDS (11.9-13.9); PTT 24.8 SECONDS (24.9-34.6)
[2022-03-07 02:59] LABS: CORONAVIRUS 2019 SARS-COV-2 NEGATIVE (NEGATIVE); INFLUENZA A NAA NEGATIVE (NEGATIVE)
[2022-03-07 03:06] LABS: ALBUMIN 3.7 g/dL (3.4-5.0); BILIRUBIN - TOTAL 0.8 mg/dL (0.2-1.0); BUN/CREAT RATIO (CALC) 17.4 RATIO; CREATININE 0.86 mg/dL (0.51-0.95); GLOBULIN (CALCULATION) 3.9 g/dL; TOTAL PROTEIN 7.6 g/dL (6.4-8.2)
[2022-03-07] MEDS ORDERED: TOPAMAX25 MG PO (06:22)
[2022-03-07] MEDS ORDERED: CYMBALTA20 MG PO (06:24)
[2022-03-07 07:12] LABS: LACTIC ACID 1.1 mmol/L (0.4-1.9)
[2022-03-07 07:26] LABS: C-REACTIVE PROTEIN 3.4 mg/dL (<=0.90)
[2022-03-08 06:14] LABS: BASOPHIL 0.1 % (0-2); EOSINOPHIL 0 % (0-5); HCT 35.6 % (37.0-47.0); HGB 11.6 g/dl (12.5-16.0); LYMPHOCYTE 5.6 % (15-48); MCH 30.3 pg (25.0-31.0); MCHC 32.6 g/dL (32.0-36.0); MONOCYTE 1.8 % (0-12); MPV 9.8 fL (6.0-9.5); NEUTROPHIL 91.6 % (41-80); NRBC 0; PLT 255 K/uL (150-400); RBC 3.83 M/uL (4.20-5.40); RDW 13.1 % (11.5-14.0)
[2022-03-08 06:18] LABS: WBC 13.3 K/uL (4.0-10.5)
[2022-03-08 06:49] LABS: BUN/CREAT RATIO (CALC) 26.7 RATIO; CREATININE 1.05 mg/dL (0.51-0.95); FT4 (FREE T4) 1.1 ng/dL (0.76-1.46); POTASSIUM 3.9 mmol/L (3.5-5.1)
[2022-03-08] MEDS ORDERED: PREDNISONE 20MG20 MG PO (08:11)
[2022-03-08] MEDS ORDERED: AUGMENTIN 500-1 EACH PO (08:11)
== END 2022-03-08 16:48 | disposition home or self-care (01) ==
LOC: FER 01:04 → FMS 05:36
PROVIDERS: Internal Medicine; Nurse Practitioner Acute Care; ADMIT Internal Medicine
DX: A41.9 Sepsis, unspecified organism (principal); J18.9 Pneumonia, unspecified organism; R10.11 Right upper quadrant pain; J44.0 Chronic obstructive pulmonary disease with (acute) lower respiratory infection; J20.9 Acute bronchitis, unspecified; J44.1 Chronic obstructive pulmonary disease with (acute) exacerbation; E11.9 Type 2 diabetes mellitus without complications; I10 Essential (primary) hypertension; E66.9 Obesity, unspecified; R91.1 Solitary pulmonary nodule; I25.10 Atherosclerotic heart disease of native coronary artery without angina pectoris; J96.11 Chronic respiratory failure with hypoxia; K82.8 Other specified diseases of gallbladder; R07.89 Other chest pain; E78.5 Hyperlipidemia, unspecified; F41.1 Generalized anxiety disorder; G25.81 Restless legs syndrome; G47.33 Obstructive sleep apnea (adult) (pediatric); Z87.891 Personal history of nicotine dependence; Z95.5 Presence of coronary angioplasty implant and graft; Z88.8 Allergy status to other drugs, medicaments and biological substances; Z88.1 Allergy status to other antibiotic agents; Z91.011 Allergy to milk products; Z91.012 Allergy to eggs; Z79.82 Long term (current) use of aspirin; Z79.4 Long term (current) use of insulin; Z79.899 Other long term (current) drug therapy; Z20.822 Contact with and (suspected) exposure to COVID-19
CPT/HCPCS: 36415; 36600; 71250; 76705; 80048; 80053; 80061; 82803; 83036; 83605; 83690; 83880; 84145; 84439; 84443; 84484; 85025; 85610; 85730; 86140; 87040; 93005; 94010; 94640; 94664; 94762; G0378; J0696; J1100; J1650; J2543; J2550; J2930; J7030; U0002

== ENCOUNTER → 2022-04-01 | Day surgery (SDC) | payer MEDICARE, OTHER ==
[~2022-04-01] VITALS: Ht 152.4 cm; Wt 88.5 kg
[~2022-04-01] MED LIST changes: +AUGMENTIN 500-1 EACH PO; +CYMBALTA20 MG PO; +NORCO 5/3251 EACH PO; +VENTOLIN (2.5 MG/3 M INH
[2022-04-01 08:53] LABS: HCT 39.5 % (37.0-47.0); HGB 12.6 g/dl (12.5-16.0); MCH 29.9 pg (25.0-31.0); MCHC 31.9 g/dL (32.0-36.0); MCV 93.8 fL (78.0-100.0); MPV 9.6 fL (6.0-9.5); RBC 4.21 M/uL (4.20-5.40); RDW 13.9 % (11.5-14.0); WBC 10.2 K/uL (4.0-10.5)
[2022-04-01 09:04] LABS: ALBUMIN 3.5 g/dL (3.4-5.0); BILIRUBIN - TOTAL 0.3 mg/dL (0.2-1.0); BUN/CREAT RATIO (CALC) 19.8 RATIO; CREATININE 0.96 mg/dL (0.51-0.95); GLOBULIN (CALCULATION) 3.9 g/dL; POTASSIUM 4.2 mmol/L (3.5-5.1); TOTAL PROTEIN 7.4 g/dL (6.4-8.2)
== END | disposition home or self-care (01) ==
LOC: FAS 08:03
PROVIDERS: Surgery
DX: Z12.11 Encounter for screening for malignant neoplasm of colon (principal); K29.70 Gastritis, unspecified, without bleeding; K44.9 Diaphragmatic hernia without obstruction or gangrene; K31.9 Disease of stomach and duodenum, unspecified; K22.70 Barrett's esophagus without dysplasia; K63.89 Other specified diseases of intestine; I10 Essential (primary) hypertension; I25.10 Atherosclerotic heart disease of native coronary artery without angina pectoris; E78.5 Hyperlipidemia, unspecified; J44.9 Chronic obstructive pulmonary disease, unspecified; E11.42 Type 2 diabetes mellitus with diabetic polyneuropathy; G40.909 Epilepsy, unspecified, not intractable, without status epilepticus; Z87.891 Personal history of nicotine dependence; Z79.82 Long term (current) use of aspirin; Z20.822 Contact with and (suspected) exposure to COVID-19
CPT/HCPCS: 43239; G0121; 36415; 80053; 82962; J2405; J2704; J7120; U0002